=== PATIENT | male | born 1965 | race Caucasian/White ===

== ENCOUNTER 2019-04-30 09:41 | Outpatient (CLI) | payer OTHER, SELFPAY ==
--- NOTE | 2019-04-30 11:00 | NEURO_ITS ---
Patient Number: [id number] Impression: # Known diabetic complains of numbness and pain of right hand. # Right Carpal Tunnel Syndrome of moderate degree. # Right ulnar neuropathy across the elbow. # Needle/EMG exam revealed neurogenic changes in right APB, 1st DI and ADM Nerve Conduction Studies Anti Sensory Summary Table Stim Site NR Peak (ms) P-T Amp (?V) Site1 Site2 Delta-P (ms) Dist (cm) Art (m/s) Right Median Anti Sensory (2-3nd Digit) Wrist 5.6 37.0 Wrist 2-3nd Digit 5.6 14.0 25 Wrist 5.5 40.9 Wrist 2-3nd Digit 5.6 14.0 25 Right Radial Anti Sensory (Base 1st Digit) Wrist 2.8 13.6 Wrist Base 1st Digit 2.8 0.0 Right Ulnar Anti Sensory (5th Digit) Wrist 3.2 56.2 Wrist 5th Digit 3.2 14.0 44 Motor Summary Table Stim Site NR Onset (ms) O-P Amp (mV) Site1 Site2 Delta-0 (ms) Dist (cm) Art (m/s) Right Median Motor (Abd Poll Brev) Wrist 6.1 3.1 Elbow Wrist 5.6 30.0 54 Elbow 11.7 3.3 Right Ulnar Motor (Abd Dig Minimi) Wrist 3.4 4.3 A Elbow Wrist 7.1 32.0 45 A Elbow 10.5 3.1 B Elbow Wrist 4.3 23.0 53 B Elbow 7.7 2.0 F Wave Studies NR F-Lat (ms) L-R F-Lat (ms) Right Median (Mrkrs) (Abd Poll Brev) 34.44 Right Ulnar (Mrkrs) (Abd Dig Min) 35.94 EMG Side Muscle Nerve Root Ins Act Fibs Amp Dur Recrt Comment Right 1stDorInt Ulnar C8-T1 Nml Nml Nml >12ms Reduced Right Ext Indicis Radial (Post Int) C7-8 Nml Nml Nml Nml Nml Right Ext Digitorum Radial (Post Int) C7-8 Nml Nml Nml Nml Nml Right BrachioRad Radial C5-6 Nml Nml Nml Nml Nml Right PronatorTeres Median C6-7 Nml Nml Nml Nml Nml Right Abd Poll Brev Median C8-T1 Nml Nml Nml >12ms Reduced Right ABD Dig Min Ulnar C8-T1 Nml Nml Nml >12ms Reduced MTDD
== END 2019-04-30 09:42 | disposition home or self-care (01) ==
PROVIDERS: Visit Provider Family Medicine
DX: M79.601 Pain in right arm (principal); E11.9 Type 2 diabetes mellitus without complications; G56.01 Carpal tunnel syndrome, right upper limb; G56.21 Lesion of ulnar nerve, right upper limb
CPT/HCPCS: 95886; 95909